=== PATIENT | male | born 1975 | race Caucasian/White ===

== ENCOUNTER 2016-12-29 16:30 | Inpatient (IN) | payer BC ==
[~2016-12-29] VITALS: Ht 175.3 cm; Wt 108.0 kg
[2016-12-29 17:29] VITALS: BP_SYST 145
[2016-12-29] MEDS ORDERED: GLU500 PO (18:29)
[2016-12-29] MEDS ORDERED: GLIP-195 PO (18:29)
[2016-12-29] MEDS ORDERED: HYDROcodone/ACETAMIN 5-325 MG TAB (NORCO/ VICODIN) PO PRN (18:30)
[2016-12-29 19:25] LABS: BASOPHILS # (AUTO) 0.2 K/uL (0.0-0.2); BASOPHILS % (AUTO) 1.5 % (0.0-2.0); EOSINOPHILS # (AUTO) 0.2 K/uL (0.0-0.4); EOSINOPHILS % (AUTO) 1.6 % (0.0-4.0); HEMATOCRIT 41.5 % (36-54); HEMOGLOBIN 13.6 g/dL (14.0-18.0); LYMPHOCYTES # (AUTO) 1.7 K/uL (1.0-5.5); LYMPHOCYTES % (AUTO) 14.1 % (20.5-51.5); MEAN CORPUSCULAR HEMOGLOBIN 28 pg (27-31); MEAN CORPUSCULAR HGB CONC 33 % (32-36); MEAN CORPUSCULAR VOLUME 86 fL (79.0-98.0); MONOCYTES # (AUTO) 0.6 K/uL (0.0-1.0); MONOCYTES % (AUTO) 4.9 % (1.7-9.3); NEUTROPHILS # (AUTO) 9.2 K/uL (1.8-7.7); NEUTROPHILS % (AUTO) 77.9 % (40.0-70.0); PLATELET COUNT (AUTO) 598 K/uL (130-430); RED BLOOD CELL COUNT(AUTO) 4.81 MIL/uL (4.2-6.2); RED CELL DISTRIBUTION WIDTH 11.7 % (9.0-15.0); WHITE BLOOD COUNT (AUTO) 11.9 K/uL (4.8-10.8)
[2016-12-29 19:48] LABS: CREATININE 1.03 mg/dL (0.55-1.30); POTASSIUM 4.1 mmol/L (3.5-5.1); TOTAL BILIRUBIN 0.2 mg/dL (0.0-1.0)
[2016-12-29] MEDS ORDERED: VANCOMYCIN HCL 2,000 MG in NS 500 ML IV ONE (21:00)
[2016-12-29 22:30] VITALS: BP_SYST 138
[2016-12-29] MEDS: CEFEPIME 1 GM in D5W 50 ML IV SCH (23:34)
[2016-12-29 23:53] LABS: CLARITY/URINE CLEAR (CLEAR); COLOR,URINE YELLOW (YELLOW)
[2016-12-29 23:54] LABS: BILIRUBIN,URINE NEGATIVE (NEGATIVE); BLOOD, URINE TRACE (NEGATIVE); GLUCOSE,URINE TRACE (NEGATIVE); KETONES,URINE NEGATIVE (NEGATIVE); LEUKOCYTE ESTERASE ,URINE NEGATIVE (NEGATIVE); NITRITE, URINE NEGATIVE (NEGATIVE); PH,URINE 5.5 (5.0-8.0); PROTEIN URINE 2+ (NEGATIVE); UROBILINOGEN,URINE 0.2 (0.2-1.0)
[2016-12-29 23:59] LABS: BACTERIA,URINE MODERATE /HPF (None Seen); HYALINE CASTS, URINE 0-10 /LPF (None Seen); WBC,URINE 0-3 /HPF (0-3)
[2016-12-30] LABS: MUCUS,URINE 1+ /LPF (None Seen)
[2016-12-30] MEDS ORDERED: LOSA25TA3 PO (04:21)
[2016-12-30] MEDS ORDERED: GLIM4TAB PO (04:24)
[2016-12-30] MEDS ORDERED: LEVO500T20 PO (04:24)
[2016-12-30] MEDS: VANCOMYCIN HCL 1,500 MG in NS 250 ML IV SCH ×3 (05:46→20:56)
[2016-12-30] MEDS: INSULIN REGULAR, HUMAN 100 UNITS/ML, 10 ML VIAL (novoLIN R) SUBCUT PRN ×4 (05:52→20:58)
[2016-12-30 06:49] LABS: BASOPHILS % (AUTO) 0.5 % (0.0-2.0); EOSINOPHILS # (AUTO) 0.3 K/uL (0.0-0.4); EOSINOPHILS % (AUTO) 3.1 % (0.0-4.0); HEMATOCRIT 38.3 % (36-54); LYMPHOCYTES # (AUTO) 1.6 K/uL (1.0-5.5); LYMPHOCYTES % (AUTO) 18.3 % (20.5-51.5); MEAN CORPUSCULAR HEMOGLOBIN 29 pg (27-31); MEAN CORPUSCULAR HGB CONC 34 % (32-36); MEAN CORPUSCULAR VOLUME 86 fL (79.0-98.0); MONOCYTES # (AUTO) 0.8 K/uL (0.0-1.0); MONOCYTES % (AUTO) 9.2 % (1.7-9.3); NEUTROPHILS # (AUTO) 5.8 K/uL (1.8-7.7); NEUTROPHILS % (AUTO) 68.9 % (40.0-70.0); PLATELET COUNT (AUTO) 547 K/uL (130-430); RED BLOOD CELL COUNT(AUTO) 4.45 MIL/uL (4.2-6.2); RED CELL DISTRIBUTION WIDTH 11.8 % (9.0-15.0); WHITE BLOOD COUNT (AUTO) 8.5 K/uL (4.8-10.8)
[2016-12-30 07:22] LABS: ALBUMIN 2.4 g/dL (3.4-4.8); CALCIUM 9.1 mg/dL (8.4-11.0); CREATININE 0.97 mg/dL (0.55-1.30); TOTAL BILIRUBIN 0.3 mg/dL (0.0-1.0)
[2016-12-30 08:30] VITALS: BP_SYST 138
[2016-12-30 09:29] VITALS: BP_SYST 137
[2016-12-30] MEDS: CEFEPIME 1 GM in D5W 50 ML IV SCH ×2 (09:34→20:22)
[2016-12-30] MEDS ORDERED: NACL 0.9% 1,000 ML IV SCH ×2 (11:00)
[2016-12-30 12:29] VITALS: BP_SYST 129
[2016-12-30 16:41] VITALS: BP_SYST 133
[2016-12-30] MEDS: metFORMIN HCL 500 MG TABLET PO SCH (17:22)
[2016-12-30 20:00] VITALS: BP_SYST 137
[2016-12-30 23:49] VITALS: BP_SYST 141
[2016-12-31 03:25] VITALS: BP_SYST 145
[2016-12-31] MEDS: VANCOMYCIN HCL 1,500 MG in NS 250 ML IV SCH ×2 (04:27→18:13)
[2016-12-31] MEDS: INSULIN REGULAR, HUMAN 100 UNITS/ML, 10 ML VIAL (novoLIN R) SUBCUT PRN ×4 (05:57→21:06)
[2016-12-31 07:54] VITALS: BP_SYST 131
[2016-12-31] MEDS: glipiZIDE XL 5 MG TAB ( GLUCOTROL XL) PO SCH (08:59)
[2016-12-31] MEDS: metFORMIN HCL 500 MG TABLET PO SCH ×2 (09:00→18:13)
[2016-12-31] MEDS: LOSARTAN POTASSIUM 25 MG TABLET PO SCH (09:00)
[2016-12-31] MEDS: CEFEPIME 1 GM in D5W 50 ML IV SCH ×2 (09:01→20:54)
[2016-12-31 11:29] LABS: PROTHROMBIN TIME 9.9 SECS (9.5-12.5)
[2016-12-31 12:19] VITALS: BP_SYST 134
[2016-12-31 16:37] VITALS: BP_SYST 149
[2016-12-31 20:00] VITALS: BP_SYST 145
[2017-01-01 00:15] VITALS: BP_SYST 128
[2017-01-01 04:00] VITALS: BP_SYST 134
[2017-01-01] MEDS: VANCOMYCIN HCL 1,500 MG in NS 250 ML IV SCH ×2 (04:56→16:47)
[2017-01-01] MEDS: INSULIN REGULAR, HUMAN 100 UNITS/ML, 10 ML VIAL (novoLIN R) SUBCUT PRN ×4 (06:32→21:44)
[2017-01-01] MEDS: glipiZIDE XL 5 MG TAB ( GLUCOTROL XL) PO SCH (09:00)
[2017-01-01] MEDS: LOSARTAN POTASSIUM 25 MG TABLET PO SCH (09:01)
[2017-01-01] MEDS: metFORMIN HCL 500 MG TABLET PO SCH ×2 (09:02→17:56)
[2017-01-01] MEDS: CEFEPIME 1 GM in D5W 50 ML IV SCH ×2 (10:45→21:36)
[2017-01-01 12:19] VITALS: BP_SYST 130
[2017-01-01 16:53] VITALS: BP_SYST 115
[2017-01-01 20:20] VITALS: BP_SYST 140
[2017-01-01 20:30] VITALS: BP_SYST 140
[2017-01-02 00:42] VITALS: BP_SYST 133
[2017-01-02] MEDS: VANCOMYCIN HCL 1,500 MG in NS 250 ML IV SCH ×2 (05:11→17:19)
[2017-01-02] MEDS: INSULIN REGULAR, HUMAN 100 UNITS/ML, 10 ML VIAL (novoLIN R) SUBCUT PRN ×4 (07:10→20:49)
[2017-01-02 07:14] LABS: ALBUMIN 2.7 g/dL (3.4-4.8); CALCIUM 9.3 mg/dL (8.4-11.0); CREATININE 0.96 mg/dL (0.55-1.30); POTASSIUM 4.1 mmol/L (3.5-5.1); THYROID STIMULATING HORMONE 1.87 uIu/mL (0.34-4.82); TOTAL BILIRUBIN 0.3 mg/dL (0.0-1.0)
[2017-01-02 08:00] VITALS: BP_SYST 135
[2017-01-02] MEDS: metFORMIN HCL 500 MG TABLET PO SCH ×2 (09:03→17:13)
[2017-01-02] MEDS: glipiZIDE XL 5 MG TAB ( GLUCOTROL XL) PO SCH (09:04)
[2017-01-02] MEDS: CEFEPIME 1 GM in D5W 50 ML IV SCH ×2 (09:04→20:44)
[2017-01-02] MEDS: LOSARTAN POTASSIUM 25 MG TABLET PO SCH (09:04)
[2017-01-02] MEDS ORDERED: NS IRRIG SOLN 1000 ML IR ONE (10:26)
[2017-01-02] MEDS ORDERED: PROPOFOL 200MG/ 20ML VIAL (DIPRIVAN) IV ONE (10:26)
[2017-01-02] MEDS ORDERED: NS 1000 ML BAG IV ONE (10:26)
[2017-01-02] MEDS ORDERED: MEPERIDINE HCL/PF 100 MG/ML AMP IM ONE (10:26)
[2017-01-02] MEDS ORDERED: MIDAZOLAM HCL 5 MG/5 ML VIAL IVP ONE (10:26)
[2017-01-02] MEDS ORDERED: NACL 0.9% 1,000 ML IV SCH (10:54)
[2017-01-02] MEDS ORDERED: MEPERIDINE HCL/PF 25 MG/ML DISP.SYRIN IVP PRN ×2 (11:00)
[2017-01-02] MEDS ORDERED: NALOXONE HCL 0.4 MG/ML AMP (NARCAN) IVP PRN (11:00)
[2017-01-02] MEDS ORDERED: HYDROmorphone 1 MG INJ. 1 MG/ML AMPUL IVP PRN (11:00)
[2017-01-02] MEDS ORDERED: KETOROLAC TROMETHAMINE 30 MG VIAL IVP PRN (11:00)
[2017-01-02] MEDS ORDERED: HYDROmorphone 2 MG/ML VIAL IVP PRN ×2 (11:00)
[2017-01-02 12:39] VITALS: BP_SYST 119
[2017-01-02 13:35] VITALS: BP_SYST 135
[2017-01-02 16:20] VITALS: BP_SYST 133
[2017-01-02 20:00] VITALS: BP_SYST 139
[2017-01-03 00:56] VITALS: BP_SYST 125
[2017-01-03] MEDS ORDERED: PIPERACILLIN/TAZOBACTAM 2.25 GM VIAL IV ONE (03:17)
[2017-01-03] MEDS: VANCOMYCIN HCL 1,500 MG in NS 250 ML IV SCH ×2 (04:08→16:06)
[2017-01-03] MEDS: PIPERACILLIN/TAZO 2.25G/DEX-IS 50 ML IV SCH ×3 (06:10→17:53)
[2017-01-03] MEDS: INSULIN REGULAR, HUMAN 100 UNITS/ML, 10 ML VIAL (novoLIN R) SUBCUT PRN ×2 (06:14→12:09)
[2017-01-03 07:59] VITALS: BP_SYST 145
[2017-01-03] MEDS: metFORMIN HCL 500 MG TABLET PO SCH ×2 (08:10→17:53)
[2017-01-03] MEDS: glipiZIDE XL 5 MG TAB ( GLUCOTROL XL) PO SCH (08:10)
[2017-01-03] MEDS: LOSARTAN POTASSIUM 25 MG TABLET PO SCH (08:11)
[2017-01-03 11:34] VITALS: BP_SYST 138
[2017-01-03 16:00] VITALS: BP_SYST 119
[2017-01-03 17:00] VITALS: BP_SYST 122
[2017-01-03 19:45] VITALS: BP_SYST 133
== END 2017-01-03 20:15 | disposition home health service (06) | DRG 623 ==
LOC: SMU 16:57
PROVIDERS: ADMIT Internal Medicine Hospice and Palliative Medicine; ATTEND Internal Medicine Hospice and Palliative Medicine
PROC: 02HV33Z Insertion of Infusion Device into Superior Vena Cava, Percutaneous Approach (ICD-10-PCS; 2016-12-31)
PROC: B548ZZA Ultrasonography of Superior Vena Cava, Guidance (ICD-10-PCS; 2016-12-31)
PROC: 0JBR0ZZ Excision of Left Foot Subcutaneous Tissue and Fascia, Open Approach (ICD-10-PCS; principal; 2017-01-02 11:00)
DX: E11.69 Type 2 diabetes mellitus with other specified complication (principal); M86.8X7 Other osteomyelitis, ankle and foot; E11.628 Type 2 diabetes mellitus with other skin complications; E11.65 Type 2 diabetes mellitus with hyperglycemia; L08.9 Local infection of the skin and subcutaneous tissue, unspecified; I10 Essential (primary) hypertension; E66.9 Obesity, unspecified; Z68.35 Body mass index [BMI] 35.0-35.9, adult
CPT/HCPCS: 36415; 71010; 73721; 80053; 80061; 80202-TC; 81000-TC; 82962; 83036; 83605; 84443-TC; 85025; 85610-TC; 85730-TC; 87040-TC; 87070-TC; 87075-TC; 87186-TC; 93923; 94010; C1751; C1769; J0692; J1815; J2175; J2250; J2543; J2704; J3370; J7030; J7040; J7050; J7060